=== PATIENT | male | born 1985 | race African-American/Black ===

== ENCOUNTER 2018-05-05 11:21 | Inpatient (IN) ==
[2018-05-06 05:33] VITALS: BP 140/93; PULSE 75; RESP 18; TEMP 98; O2SAT 99
[2018-05-06 12:02] LABS: Baso % (Auto) 0.1 % (0.0-2.0); Eos # (Auto) 0.1 th/mm3 (0.0-0.4); Eos % (Auto) 1.2 % (0.0-4.0); Hematocrit 43.4 % (39.0-51.0); Hemoglobin 14.7 gm/dL (13.0-17.0); Lymph # (Auto) 1.8 th/mm3 (1.0-4.8); Lymph % (Auto) 15.1 % (9.0-44.0); Mean Corpuscular HGB Conc 33.8 % (32.0-36.0); Mean Corpuscular Hemoglobin 29.6 pg (27.0-34.0); Mean Corpuscular Volume 87.6 fL (80.0-100.0); Mean Platelet Volume 10.2 fL (7.0-11.0); Mono # (Auto) 0.5 th/mm3 (0.0-0.9); Mono % (Auto) 4.4 % (0.0-8.0); Neut # (Auto) 9.6 th/mm3 (1.8-7.7); Neut % (Auto) 79.2 % (16.0-70.0); Platelet Count 233 th/mm3 (150-450); Red Blood Count 4.95 mil/mm3 (4.50-5.90); Red Cell Distribution Width 13.7 % (11.6-17.2); White Blood Count 12.1 th/mm3 (4.0-11.0)
[2018-05-06 12:32] LABS: Albumin 3.9 g/dL (3.4-5.0); Anion Gap 10 meq/L (5-15); Aspartate Aminotransferase 20 U/L (15-37); Blood Urea Nitrogen 9 mg/dL (7-18); Calcium 9.3 mg/dL (8.5-10.1); Carbon Dioxide 25.3 meq/L (21.0-32.0); Chloride 103 meq/L (98-107); Glomerular Filtration Rate 85 mL/min (>89); Glucose,Random 103 mg/dL (74-106); Potassium 4.1 meq/L (3.5-5.1); Sodium 138 meq/L (136-145)
[2018-05-06 12:33] LABS: Alanine Aminotransferase 25 U/L (12-78); Cholesterol 140 mg/dL (120-200); Triglycerides 84 mg/dL (42-150)
[2018-05-06 12:35] LABS: Alkaline Phosphatase 70 U/L (45-117); Chol/HDL Ratio 3.18 Ratio; LDL Cholesterol,Calculated 79 mg/dL (0-99); Total Protein 8.7 g/dL (6.4-8.2)
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
--- NOTE | 2018-05-06 15:23 | ECG ---
Date Performed: 05/06/2018 Time Performed: 10:21:45 PTAGE: 32 years EKG: Sinus rhythm NORMAL ECG PREVIOUS TRACING : 01/08/2011 21.34 Since the previous tracing, no significant change noted DOCTOR: Viral Li Interpretating Date/Time 05/06/2018 15:22:55
[2018-05-06 17:04] LABS: Hemoglobin A1c 5.2 % (4.3-6.0)
== END 2018-05-06 15:45 | disposition home or self-care (01) ==
LOC: H270 14:48
PROVIDERS: ADMIT Psychiatry & Neurology Psychiatry; ATTEND Psychiatry & Neurology Psychiatry